=== PATIENT | male | born 1990 | race Caucasian/White ===

== ENCOUNTER 2017-11-23 16:59 | Emergency (ER) | payer OTHER ==
[2017-11-23 17:18] VITALS: PULSE 90; O2SAT 95
--- NOTE | 2017-11-23 17:38 | EDPHY ---
General Time Seen by Provider: 11/23/17 16:59 Narrative: CHIEF COMPLAINT: Skiing injury, left shoulder pain and dislocation HISTORY OF PRESENT ILLNESS: Patient presents by EMS and is seen at time of arrival. He complains of left shoulder pain status post ski injury. He was skiing flip style when he was attempting a back flip. He says his front tips caught the jump, causing him to land awkwardly. He says he landed directly on his left shoulder. He was wearing a helmet. Did not strike his head or lose conscious. No headache or neck pain. No chest or back pain. No abdominal pain. No low back pain. No injuries to the lower extremities the right upper extremity. He has severe shoulder pain on the left side only. He had some paresthesia at time of injury per EMS but this has resolved. He has no weakness of the wrist or elbow. He has no laceration or puncture. He received a total of 250 mcg of IV fentanyl in route, last dose was 50 mcg 10 min prior to arrival. He has no other associated complaints or modifying factors. ESTABLISHED ORTHOPEDIST: Dr. Heller REVIEW OF SYSTEMS: Ten systems reviewed and are negative unless otherwise noted in the HPI PAST MEDICAL HISTORY: Uncomplicated. Orthopedic injuries PAST SURGICAL HISTORY: No recent surgeries SOCIAL HISTORY: Nonsmoker. Lives and works here locally. FAMILY HISTORY: Noncontributory EXAMINATION General Appearance: Alert, no distress HEENT: Normocephalic and atraumatic. Pupils equal round reactive. No Mc sign. No raccoon eyes. No outward signs of trauma Neck: Supple nontender. No crepitus, step-off or deformity. No pain in any range. No meningeal signs. Cardiovascular: Regular rate rhythm. No murmur. Pulses normal throughout with symmetric radial pulses 2+.. Brisk cap refill Neurological: GCS 15. A&O, 2 point sensory of the hands symmetric. Interossei strength symmetric. Skin: Warm and dry, no rash. No petechiae or purpura. No ecchymosis. No puncture. No laceration. Extremities: Tenderness and anterior step-off the left shoulder. Range of motion not tested due to suspected dislocation. Range of motion of the wrist and elbows intact and symmetric. There is no wrist drop of the left upper extremity. Psychiatric: Mood and affect normal DIFFERENTIAL DIAGNOSES: Including but not limited to dislocation, sprain, strain, fracture, fracture dislocation, AC separation, AC sprain MDM: 5:00 p.m. Skiing injury with suspected left anterior shoulder dislocation. He is neurovascular intact distally. X-ray of the shoulder has been ordered. There is deformity and tenderness with obvious dislocation by clinical exam. I have ordered x-ray to confirm there is no fracture and then we will proceed with closed reduction. He has no signs of injury elsewhere. No head injury or loss of conscious. No neck pain. No chest or back pain. Lungs are clear in all grimes. Vital signs are stable. He has received 250 mcg of fentanyl over the past 60 min. He is in no acute distress. 5:35 p.m. Successful closed shoulder reduction without procedural sedation. Tolerated well. Neurovascular intact pre and postprocedure. Post reduction films pending. 5:50 p.m. I have reviewed the x-ray myself, without the radiologist. There is successful reduction of the shoulder with no obvious fracture. I have discussed this with the patient. We discussed nonweightbearing and shoulder. We discussed shoulder and elbow exercises when appropriate. We discussed sling and swath. Discussed ice, ibuprofen or Aleve. Short course of pain medication has been prescribed. We discussed mandatory follow up with Dr. Rowell, the on-call orthopedist. We discussed ED precautions for worsening pain, numbness, tingling , wrist drop. He is comfortable this plan and discharged home stable condition. 6:20 p.m. Patient has already been discharged home but I am following up on the report from the radiologist. They have read the post reduction film as successful reduction without fracture. PROCEDURE: Closed reduction of shoulder dislocation Consent: Verbal Location: Left shoulder Anesthesia: Intra-articular Marcaine, 0.5%. 8 mL. 50 mcg of IV fentanyl given 10 min prior to arrival. this was done without procedural sedation. Procedure: After time-out good anesthesia pain control, the left shoulder was placed in traction counter traction. I performed scapular retraction and shoulder massage of the deltoid and supraspinatus muscles. After holding traction for several minutes, was able to reduce the shoulder. This was tolerated well. No complications. Complications: None Post-reduction film: Pending as of 5:40 p.m. SUPERVISION: Patient was independently examined, but I discussed the case with my secondary supervising physician Dr. McCollester ED Precautions: Worsening pain. Erythema, edema, cyanosis, pallor, paresthesia or anesthesia. - Objective Allergies/Adverse Reactions: No Known Allergies Allergy (Unverified 11/23/17 17:14) Home Medications: Medication Instructions Recorded oxyCODONE HCL/ACETAMINOPHEN 1 each PO Q4-6PRN PRN #7 tablet 11/23/17 [Percocet 5-325 mg Tablet] Departure - Departure Disposition: Home, Routine, Self-Care Clinical Impression: Dislocation, shoulder, anterior Qualifiers: Encounter type: initial encounter Laterality: left Qualified Code(s): S43.015A - Anterior dislocation of left humerus, initial encounter Condition: Good Instructions: Shoulder Dislocation (ED), Early Postoperative or Post Injury Shoulder Exercises (ED), Shoulder Manipulation (DC), Oxycodone/Acetaminophen ( By mouth) Additional Instructions: 1. Nonweightbearing of the left shoulder until seen and cleared by orthopedist 2. Call the orthopedist, Dr. Rowell tomorrow morning for outpatient follow-up 3. Sling and swath as discussed and demonstrated 4. Ibuprofen 600 mg every 6 hr or Aleve 2 pills in the morning and 1 pill at bedtime. Take this for 5-7 days and stop 5. Percocet pain medication as prescribed as needed. Do not mix with alcohol or marijuana 6. Ice to the affected area often as needed 7. ED precautions as discussed Referrals: Atif Heller MD [Medical Doctor] - As per Instructions Americo Rowell MD [Medical Doctor] - As per Instructions Stand Alone Forms: Work Excuse Prescriptions: oxyCODONE HCL/ACETAMINOPHEN [Percocet 5-325 mg Tablet] 1 each PO Q4-6PRN PRN #7 tablet PRN Reason: Pain, Breakthrough
[2017-11-23] MEDS ORDERED: OXYCODONE/APAP 5/325MG PREPACK#4 BTL TAKEHOME ONE (17:50)
[2017-11-23 18:13] VITALS: BP 150/90; RESP 15; TEMP 98.8
== END 2017-11-23 18:13 | disposition home or self-care (01) ==
LOC: EDUNIT#
PROC: 0RSKXZZ Reposition Left Shoulder Joint, External Approach (ICD-10-PCS; principal; 2017-11-23)
DX: S43.015A Anterior dislocation of left humerus, initial encounter (principal); V00.328A Other snow-ski accident, initial encounter; Y99.8 Other external cause status; Y93.39 Activity, other involving climbing, rappelling and jumping off
CPT/HCPCS: A4565